=== PATIENT | female | born 1955 | race Two or more races ===

== ENCOUNTER 2020-05-02 14:38 | Emergency (ER) | payer MEDICARE, MEDICAID ==
[~2020-05-02] VITALS: Ht 154.9 cm; Wt 73.9 kg
[2020-05-02] MEDS ORDERED: KETOROLAC TROMETH 60MG/2ML VIAL IM ONE (15:00)
[2020-05-02 16:04] VITALS: BP 138/63
== END 2020-05-02 16:25 | disposition home or self-care (01) ==
LOC: ER 14:38
DX: M13.811 Other specified arthritis, right shoulder (principal); G89.29 Other chronic pain; I10 Essential (primary) hypertension
CPT/HCPCS: 96372; 99283; J1885